=== PATIENT | male | born 1990 | race Caucasian/White ===

== ENCOUNTER 2018-04-09 12:46 | Emergency (ER) | payer SELFPAY ==
[2018-04-09] MEDS: KETOROLAC 30 MG INJ IM (15:05)
== END 2018-04-09 16:00 | disposition home or self-care (01) ==
LOC: FTE 12:46
DX: R51 Headache (principal); J45.901 Unspecified asthma with (acute) exacerbation
CPT/HCPCS: 96372; 99284-25